=== PATIENT | female | born 1980 | race Caucasian/White ===

== ENCOUNTER → 2019-05-20 12:10 | Outpatient (CLI) | payer OTHER, SELFPAY ==
[2019-05-20 14:26] LABS: T4 Free Direct 1.28 ng/dL (0.76-1.46); Thyroid Stim Hormone (TSH) 2.13 uIU/mL (0.358-3.74)
[2019-05-20 14:27] LABS: T3 Total - Triiodothyronine 2.02 ng/mL (0.6-1.81)
== END ==
PROVIDERS: Family Provider Family Medicine; PCP Family Medicine; Referring Provider Family Medicine; Visit Provider Family Medicine
DX: R53.82 Chronic fatigue, unspecified (principal); Z13.29 Encounter for screening for other suspected endocrine disorder
CPT/HCPCS: 36415; 84439; 84443; 84480

== ENCOUNTER → 2024-10-12 | Outpatient (CLI) | payer OTHER, SELFPAY | END | disposition home or self-care (01) | LOC: PSN 07:58 | PROVIDERS: PCP Family Medicine; Referring Provider Chiropractor; Visit Provider Chiropractor | DX: J45.998 Other asthma (principal) | CPT/HCPCS: 94060; 94726; 94729 ==

== ENCOUNTER → 2025-06-08 | Outpatient (CLI) | payer OTHER, SELFPAY ==
[2025-06-08 15:18] LABS: hCG Titer Quant., Serum < 1 mIU/mL (<9 non-preg)
[2025-06-08 15:24] LABS: Follicle Stimulating Hormone 1.9 mIU/mL
[2025-06-14 19:08] LABS: Testosterone, % Free 1.61 % (0.50-2.80); Testosterone, Free 0.21 ng/dL (0.10-0.85)
== END | disposition home or self-care (01) ==
LOC: MTLAB 11:28
PROVIDERS: PCP Family Medicine
DX: E28.2 Polycystic ovarian syndrome (principal)
CPT/HCPCS: 36415; 82157; 82627; 83001; 84270; 84402; 84403; 84439; 84443; 84702; 82626